=== PATIENT | male | born 1975 | race Two or more races ===

== ENCOUNTER 2016-07-07 00:49 | Emergency (ER) | payer BC ==
[~2016-07-07] VITALS: Ht 162.6 cm; Wt 97.1 kg
[2016-07-07 01:13] VITALS: BP 152/89
[2016-07-07] MEDS ORDERED: CEPH-264 PO (01:33)
--- NOTE | 2016-07-07 01:33 | PHYS DOC ---
Past Medical History Past Medical History: High Cholesterol Past Surgical History: No Surgical History Alcohol Use: Sober Drug Use: None Adult General Chief Complaint Chief Complaint: TOE PROBLEM HPI HPI Patient is a 40 year old male who presents with right great toe pain and swelling and discharge from his lateral toenail. His pain is achy, constant, worse with pressure. He had recent procedure for ingrown toenail and has been referred to a business management associate. He was concerned about the pain and pus discharge today, so he came for evaluation. He has taken no [id number] medications for this. He has tried salt water soaking without relief. He denies injury, numbness, tingling, weakness Review of Systems Review of Systems Constitutional: Denies fever or chills [] Eyes: Denies change in visual acuity, redness, or eye pain [] HENT: Denies nasal congestion or sore throat [] Respiratory: Denies cough or shortness of breath [] Cardiovascular: No additional information not addressed in HPI [] GI: Denies abdominal pain, nausea, vomiting, bloody stools or diarrhea [] : Denies dysuria or hematuria [] Musculoskeletal: Denies back pain [] Integument: Denies rash or skin lesions [] Neurologic: Denies headache, focal weakness or sensory changes [] Endocrine: Denies polyuria or polydipsia [] Physical Exam Physical Exam Constitutional: Well developed, well nourished, no acute distress, non-toxic appearance. [] HENT: Normocephalic, atraumatic, bilateral external ears normal, oropharynx moist, no oral exudates, nose normal. [] Eyes: PERRLA, EOMI. [] Neck: Normal range of motion, supple. [] Cardiovascular: Good DP and PT pulses, extremities warm and well-perfused [] Lungs & Thorax: Respirations even and unlabored [] Abdomen: Bowel sounds normal, soft, no tenderness. [] Skin: Warm, dry, no erythema, no rash. [] Back: Normal range of motion. [] Extremities: Has mild swelling and white discoloration along the lateral toenail of the right great toe with no expressible discharge; there is mild appropriate tenderness here; there is no crepitance or warmth; Can flex/ex toes ; Can dorsiflex/plantar flex ankle; SILT escalona/sa/sp/dp/tib distributions; good dp and pt pulses equal bilaterally Neurologic: Alert and oriented X 3, normal motor function, normal sensory function, no focal deficits noted. [] Psychologic: Affect normal, judgement normal, mood normal. [] Current Patient Data Vital Signs Vital Signs Date Time Temp Pulse Resp B/P Pulse Ox O2 Delivery O2 Flow Rate FiO2 07/07/16 01:13 98.4 80 18 97 Room Air 98.4 Course & Med Decision Making Course & Med Decision Making Pertinent Labs and Imaging studies reviewed. (See chart for details) Appears to have an early paronychia that would not be amendable to incision and drainage at this time. Will place on oral antibiotics and he will follow-up with podiatry as planned. Encouraged continued sitz baths. Return precautions given. He understands and agrees with plan. Dragon Disclaimer Dragon Disclaimer This electronic medical record was generated, in whole or in part, using a voice recognition dictation system. Departure Departure Impression: Primary Impression: Paronychia Disposition: HOME, SELF-CARE Condition: STABLE Patient Instructions: Paronychia, [id number] Additional Instructions: Take Keflex for toe infection. Follow-up with podiatry. Return for any concerns. Scripts Cephalexin (Keflex)500 Mg Capsule1 Cap PO TID #21 CAP Prov:Aurelio YU MD 07/07/16 Problem Qualifiers Primary Impression: Paronychia Laterality: right Qualified Code: L03.011 - Cellulitis of right finger Aurelio YU MD Jul 07, 2016 01:33
== END 2016-07-07 02:00 | disposition home or self-care (01) ==
LOC: ER 00:49
DX: L03.031 Cellulitis of right toe (principal); E78.00 Pure hypercholesterolemia, unspecified
CPT/HCPCS: 99283

== ENCOUNTER 2018-01-13 16:54 | Emergency (ER) | payer SELFPAY ==
[2018-01-13] MEDS: TETRACAINE 0.5% OPHTH SOLUTION 4ML BOTTLE. OS (18:05)
[2018-01-13] MEDS: FLUORESCEIN OPHTH TEST STRIP. OU (18:06)
== END 2018-01-13 19:00 | disposition home or self-care (01) ==
LOC: ER 16:54
DX: T15.12XA Foreign body in conjunctival sac, left eye, initial encounter (principal); E78.00 Pure hypercholesterolemia, unspecified; Z87.891 Personal history of nicotine dependence
CPT/HCPCS: 65205; 65220; 99284